=== PATIENT | male | born 1975 | race Caucasian/White ===

== ENCOUNTER 2019-05-29 13:14 | Emergency (ER) | payer OTHER ==
[~2019-05-29] VITALS: Ht 185.4 cm; Wt 115.2 kg
[2019-05-29 13:21] VITALS: Ht 185.4 cm; Wt 115.2 kg
[2019-05-29 13:55] LABS: BASOPHIL % 0.3 % (0-2); PLATELET COUNT 256 x10^3mcL (130-400); RED CELL DISTRIBUTION WIDTH 12.9 % (11.5-14.5)
[2019-05-29 14:28] LABS: CALCIUM 9.9 mg/dL (8.5-10.1); CHLORIDE SERUM 105 mmol/L (98-107); GFR1 > 60 mL/min; GLUCOSE SERUM 169 mg/dL (74-106); POTASSIUM SERUM 4.3 mmol/L (3.5-5.1); SODIUM SERUM 142 mmol/L (136-145)
[2019-05-29 14:34] LABS: ALBUMIN 4.3 g/dL (3.4-5.0); ALKALINE PHOSPHATASE 58 U/L (46-116); ALT/SGPT 47 U/L (16-63); AST/SGOT 27 U/L (15-37); BILIRUBIN TOTAL 0.4 mg/dL (0.20-1.00)
[2019-05-29 14:39] LABS: TOTAL PROTEIN, SERUM 8.6 g/dL (6.4-8.2)
[2019-05-29 14:55] LABS: FREE T4 1.01 ng/dL (0.76-1.46); FREE THYROXINE INDEX 1.9 ug/dL (1.4-4.5); T4(THYROXINE) 5.2 ug/dL (4.7-13.3)
[2019-05-29 15:33] LABS: T3 TOTAL 0.79 ng/mL
[2019-05-29 16:44] LABS: AMPHETAMINE QUAL UR NONE DETECTED (See below)
[2019-05-29 17:26] VITALS: BP 132/82
== END 2019-05-29 16:50 | disposition home or self-care (01) ==
LOC: ED 13:14
PROVIDERS: Emergency Medicine
DX: R00.2 Palpitations (principal); F41.9 Anxiety disorder, unspecified; I10 Essential (primary) hypertension; E11.9 Type 2 diabetes mellitus without complications
CPT/HCPCS: 36415; 84439; J7030